=== PATIENT | male | born 1990 | race Caucasian/White ===

== ENCOUNTER 2021-02-23 21:08 | Emergency (ER) | payer SELFPAY ==
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
== END 2021-02-23 21:30 | disposition home or self-care (01) ==
LOC: FB.ED 21:08
DX: S01.01XA Laceration without foreign body of scalp, initial encounter (principal); W20.8XXA Other cause of strike by thrown, projected or falling object, initial encounter
CPT/HCPCS: 12002; 99282-25